=== PATIENT | male | born 1960 | race Caucasian/White ===

== ENCOUNTER → 2017-12-17 17:00 | Outpatient (CLI) | payer OTHER, MEDICAID, SELFPAY ==
--- NOTE | 2017-12-17 | DI.MRI.S_ITS ---
PROCEDURE: MR KNEE RT WO CON INDICATIONS: Medial right knee pain TECHNIQUE: Noncontrast sagittal PD fast spin echo and T2 fast spin echo with fat saturation, sagittal 3-D FLASH with fat saturation; coronal T1 spin echo and PD fast spin echo with fat saturation, and axial PD fast spin echo with fat saturation through the knee. COMPARISON: None. FINDINGS: Image quality: Excellent. Menisci: There is horizontal tear involving the posterior horn of the medial meniscus extending to the inferior articular surface. The lateral meniscus demonstrates normal morphology and internal signal. The meniscal root ligaments appear intact. Cruciate ligaments: The anterior and posterior cruciate ligaments appear intact. Medial structures: The medial collateral ligament appears intact. The posterior oblique ligament, semimembranosus tendon insertions, oblique popliteal ligament, and meniscocapsular junction appear intact. Visualized portions of the pes anserinus tendons appear normal. No abnormal bursal fluid. Lateral structures: The lateral collateral ligament, long and short heads of the biceps femoris tendon appear intact. The popliteus tendon appears normal; the popliteofibular ligament appears intact. The posterosuperior and anteroinferior popliteomeniscal fascicles appear intact. The arcuate and fabellofibular ligaments appear intact, on either side of the lateral inferior geniculate artery. Iliotibial band appears normal. Anterior structures: The quadriceps and patellar tendons appear intact. Patellar alignment is normal. No femoral trochlear dysplasia or ventral trochlear prominence. No edema in the infrapatellar fat pad. Bones and cartilage: No bone marrow contusions or fractures. There is cartilage thinning and fibrillation of the patellofemoral compartment. A full-thickness cartilage fissure is noted in patella. Joint space: There is trace knee joint effusion. No Naranjo's cyst. Please made of mild thickening of synovial plicae. IMPRESSION: 1. Horizontal tear involving the posterior horn of the medial meniscus. 2. Chondromalacia patella. 3. Mild thickening of synovial plicae. Dictated by: Taye Arthur M.D. on 12/17/2017 at 22:25 Approved by: Taye Arthur M.D. on 12/18/2017 at 10:04
--- NOTE | 2017-12-17 | DI.MRI.S_ITS ---
PROCEDURE: MR KNEE LT WO CON INDICATIONS: bilateral knee derangment TECHNIQUE: Noncontrast sagittal PD fast spin echo and T2 fast spin echo with fat saturation, sagittal 3-D FLASH with fat saturation; coronal T1 spin echo and PD fast spin echo with fat saturation, and axial PD fast spin echo with fat saturation through the knee. COMPARISON: None. FINDINGS: Image quality: Excellent. Menisci: There is a large horizontal tear involving the posterior horn of the medial meniscus. The lateral meniscus demonstrates normal morphology and internal signal. The meniscal root ligaments appear intact. Cruciate ligaments: There is mucoid degeneration of the anterior cruciate ligament. The posterior cruciate appear normal. Medial structures: The medial collateral ligament appears intact. The posterior oblique ligament, semimembranosus tendon insertions, oblique popliteal ligament, and meniscocapsular junction appear intact. Visualized portions of the pes anserinus tendons appear normal. No abnormal bursal fluid. Lateral structures: The lateral collateral ligament, long and short heads of the biceps femoris tendon appear intact. The popliteus tendon appears normal; the popliteofibular ligament appears intact. The posterosuperior and anteroinferior popliteomeniscal fascicles appear intact. The arcuate and fabellofibular ligaments appear intact, on either side of the lateral inferior geniculate artery. Iliotibial band appears normal. Anterior structures: The quadriceps and patellar tendons appear intact. Patellar alignment is normal. No femoral trochlear dysplasia or ventral trochlear prominence. No edema in the infrapatellar fat pad. Bones and cartilage: No fractures. There is marrow edema in the fibular head. There is mild tricompartmental cartilage thinning and fibrillation. Joint space: There is moderate knee joint effusion. No Naranjo's cyst. Normal appearing synovial plicae are incidentally noted. A 5 mm intra-articular body is noted within the intercondylar notch. IMPRESSION: 1. Large horizontal tear involving the posterior horn of the medial meniscus. 2. Mucoid degeneration of the anterior cruciate ligament. 3. Mild tricompartmental cartilage thinning and fibrillation. 4. Moderate knee joint effusion. 5. Marrow edema in the fibular head, either reactive (related to proximal tibiofibular joint degeneration) or secondary to mild contusion. 6. A 5 mm intra-articular body within the intercondylar notch Dictated by: Taye Arthur M.D. on 12/17/2017 at 22:28 Transcribed by: MERLY on 12/17/2017 at 22:30 Approved by: Taye Arthur M.D. on 12/18/2017 at 10:11
== END ==
PROVIDERS: Visit Provider Orthopaedic Surgery
DX: S83.242A Other tear of medial meniscus, current injury, left knee, initial encounter (principal); M17.12 Unilateral primary osteoarthritis, left knee; M25.462 Effusion, left knee; S83.241A Other tear of medial meniscus, current injury, right knee, initial encounter; M22.41 Chondromalacia patellae, right knee
CPT/HCPCS: 73721

== ENCOUNTER → 2024-06-08 13:57 | Outpatient (CLI) | payer OTHER, MEDICAID, SELFPAY ==
--- NOTE | 2024-06-08 13:59 | DI.RAD.S_ITS ---
PROCEDURE: XR SHOULDER RT MIN 2V INDICATIONS: R shoulder pain TECHNIQUE: Three views of the shoulder were acquired. COMPARISON: None. FINDINGS: Bones: There are no osseous abnormalities. Acromioclavicular and glenohumeral joints: Mild degeneration both joints. Soft tissues: No soft tissue swelling, calcification or mass. IMPRESSION: Mild acromioclavicular and glenohumeral degeneration. Dictated by: Cj Gunter M.D. on 06/09/2024 at 11:45 Approved by: Cj Gunter M.D. on 06/09/2024 at 11:46
== END ==
PROVIDERS: PCP Family Medicine; Referring Provider Family Medicine; Visit Provider Family Medicine
DX: M19.011 Primary osteoarthritis, right shoulder (principal); M25.511 Pain in right shoulder
CPT/HCPCS: 73030

== ENCOUNTER → 2024-09-25 08:34 | Outpatient (CLI) | payer OTHER, SELFPAY ==
--- NOTE | 2024-09-25 08:35 | DI.RAD.S_ITS ---
PROCEDURE: XR LUMBAR SPINE 2-3V INDICATIONS: chronic back pain TECHNIQUE: Three views of the lumbar spine were acquired. COMPARISON: None. FINDINGS: Bones: Five [id number]-[id number] vertebrae are present. There is grade 1 retrolisthesis at every level from L1 through S1. Mild disc height loss at all levels. Prominent facet hypertrophy and sclerosis throughout the lumbar spine. No vertebral body compression fractures. No suspicious bony lesions. Soft tissues: Overlying bowel gas pattern is normal. No suspicious soft tissue calcifications. IMPRESSION: Multilevel spondylosis and spondylolisthesis. Dictated by: Melissa Odell M.D. on 09/25/2024 at 13:56 Approved by: Melissa Odell M.D. on 09/25/2024 at 13:57
--- NOTE | 2024-09-25 08:35 | DI.RAD.S_ITS ---
PROCEDURE: XR CERVICAL SPINE 2V OR 3V INDICATIONS: C spine pain TECHNIQUE: Three view(s) of the cervical spine were acquired. COMPARISON: None. FINDINGS: Bones: Normal mineralization. No acute vertebral body fractures. Degeneration at the C1-2 level anteriorly. Normal alignment. Mild facet sclerosis at C7-T1. Mildly decreased disc height at C4-5, C5-6, and C6-7. Odontoid view is normal. Soft tissues: No prevertebral soft tissue swelling. IMPRESSION: Mild, predominantly lower cervical spine disc degeneration. Dictated by: Melissa Odell M.D. on 09/25/2024 at 13:55 Approved by: Melissa Odell M.D. on 09/25/2024 at 13:56
== END ==
PROVIDERS: PCP Family Medicine; Referring Provider Family Medicine; Visit Provider Family Medicine
DX: M50.31 Other cervical disc degeneration, high cervical region; M54.50 Low back pain, unspecified; M43.16 Spondylolisthesis, lumbar region; M43.17 Spondylolisthesis, lumbosacral region; M47.816 Spondylosis without myelopathy or radiculopathy, lumbar region; G89.29 Other chronic pain
CPT/HCPCS: 72040; 72100

== ENCOUNTER 2024-11-21 13:10 | Emergency (ER) | payer MEDICARE, SELFPAY ==
--- NOTE | 2024-11-21 13:14 | DI.RAD.S_ITS ---
PROCEDURE: XR CHEST 1V INDICATIONS: chest pain TECHNIQUE: One view of the chest was acquired. COMPARISON: None. FINDINGS: Surgical changes and devices: None. Lungs and pleura: Lungs are clear. No pleural effusions or pneumothorax. Mediastinum: Mediastinal contours appear normal. Heart size is normal. Bones and chest wall: No suspicious bony lesions. Overlying soft tissues appear unremarkable. IMPRESSION: No acute cardiopulmonary abnormality is seen. Approved by: Holger Wade M.D. on 11/21/2024 at 14:13
[2024-11-21 13:18] VITALS: BP 159/100; PULSE 77; RESP 17; TEMP 36.7; O2SAT 100; BMI 20.4
--- NOTE | 2024-11-21 13:21 | EKG_ITS ---
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
--- NOTE | 2024-11-21 13:23 | EKG_ITS ---
[facility] [address] [place] [address] Test Date: 2024-11-21 Pat Name: Nick Mason Department: 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
[2024-11-21 13:30] VITALS: BP 173/88; PULSE 75
[2024-11-21] MEDS: ASPIRIN 81 MG CHEW TAB 243 MG PO (13:30)
[2024-11-21] MEDS: NITROGLYCERIN 0.4 MG SL TAB SL (13:30)
[2024-11-21 13:31] LABS: Add Manual Diff / Slide Review NO; Basophils Absolute Auto 0 /uL (0-100); Basophils Percent Auto 0.3 % (0-2); Eosinophils Absolute Auto 0 /uL (0-450); Eosinophils Percent Auto 0.4 % (2-4); Hematocrit 44.5 % (41-53); Hemoglobin 15.1 g/dL (13.5-17.5); Lymphocytes Absolute Auto 1200 /uL (1100-4500); Lymphocytes Percent Auto 14.1 % (25-40); Mean Corpuscular HGB Conc 33.8 % (30-36); Mean Corpuscular Volume 94.5 fL (80-100); Monocytes Absolute Auto 600 /uL (0-900); Monocytes Percent Auto 7.4 % (3-14); Neutrophils Absolute Auto 6700 /uL (1500-7000); Neutrophils Percent Auto 77.8 % (50-75); Platelet Count 193 X10^3/uL (150-400); Red Cell Distribution Width 13.5 % (11.6-14.8); White Blood Cell Count 8.6 X10^3/uL (4.5-11.0)
[2024-11-21] MEDS: HEPARIN 5,000 UNIT/ML VIAL 4000 UNIT IV (13:35)
[2024-11-21 13:36] LABS: INR 1.1 (0.9-1.3); Prothrombin Time 12.3 SECONDS (9.4-12.5)
[2024-11-21] MEDS: HEPARIN DRIP 25,000 UNIT/500 ML IV.SOLN 16.874 UNIT IV (13:36)
--- NOTE | 2024-11-21 13:36 | ED_ITS ---
HPI - Chest Pain General Chief Complaint: Chest Pain Stated Complaint: Chest pain few hours ago Time Seen by Provider: 11/21/24 13:30 Source: patient Mode of arrival: Ambulatory History of Present Illness HPI narrative: Patient is a 64-year-old male history of hypertension and known LAD lesion without a stent presenting today with chest pain and pressure. He reports that he was doing heavy for 3 work lifting heavy things today when he noticed increasing pressure. It did not radiate no significant shortness of breath. He was previously seen at [facility] who reported that he had about a 50% lesion in his LAD at that time he chose not to have a stent placed. He has not really had issues since. However today he was significant pressure it kind of comes and goes definitely worse with exertion[place] come [place] here without any issue. He was currently still having chest pressure. He took a full-dose aspirin prior to arrival. Related Data Previous Rx's Medication Instructions Recorded amlodipine 2.5 mg tablet 2.5 mg PO DAILY #90 tabs 09/15/24 bupropion HCl 150 mg 24 hr tablet, 150 mg PO QAM #90 tabs 09/15/24 extended release lisinopril 20 mg tablet 20 mg PO DAILY #90 tabs 09/15/24 cyclobenzaprine 10 mg tablet 10 mg PO BEDTIME PRN muscle spasm 09/30/24 #30 tabs hydrocodone 5 mg-acetaminophen 325 1 tab PO BEDTIME PRN pain #20 tabs 09/30/24 mg tablet methylprednisolone 4 mg tablets in See Rx Instructions PO PER PKG DIR 09/30/24 a dose pack (Medrol (Arnaud)) #21 ea Allergies Allergy/AdvReac Type Severity Reaction Status Date / Time No Known Drug Allergies Allergy Verified 11/21/24 13:25 Patient History Medical History Chronic low back pain Preventative health care Depression Hypertension CAD (coronary artery disease) Right shoulder pain Social History Smoking Status: Never smoker Smoking Status: Never smoker Exam Initial Vital Signs Initial Vital Signs: Vital Signs Temperature 98.1 F 11/21/24 13:18 Pulse Rate 77 11/21/24 13:18 Respiratory Rate 17 11/21/24 13:18 Blood Pressure 159/100 H 11/21/24 13:18 Pulse Oximetry 100 11/21/24 13:18 Oxygen Delivery Method Room Air 11/21/24 13:18 GENERAL: Alert well-appearing 64-year-old and in no acute distress. HEENT: Head atraumatic,EOMI, pupils reactive, face symmetric, moist mucous membranes CARDIOVASCULAR: Regular rate and rhythm without murmurs, rubs or gallops. RESPIRATORY: Breath sounds equal bilaterally, no wheezes rales or rhonchi. ABDOMEN: Soft, nontender. Normoactive bowel sounds all 4 quadrants. No guarding or rebound. EXTREMITIES: Normal range of motion, no clubbing or edema. Neurovascularly intact NEUROLOGICAL: Alert and oriented x4.Normal gait and speech. Cranial nerves II through XII grossly intact. SKIN: Warm, dry, no laceration, no petechiae, no rashes or lesions. Course Orders Ordered: ED Orders 11/21/24 13:14 XR chest 1V Stat EKG-12 Lead Stat 11/21/24 13:22 Complete Blood Count AUTO DIFF Stat Comprehensive Metabolic Panel Stat Lipase Stat Magnesium Stat NT-proBNP (BNP-Adult 18+) Stat PTT Partial Thromboplastin Bryan Stat Prothrombin Time INR Stat Troponin & CK Cardiac Panel Stat Discontinued Medications Aspirin (Aspirin 81 Mg Chew Tab) 243 mg PO NOW ONE Stop: 11/21/24 13:15 Last Admin: 11/21/24 13:30 Dose: 243 mg Documented By: ZAIDA Heparin Sodium (Porcine) (Heparin 5,000 Unit/Ml Vial) 4,000 unit 60 unit/kg (4000 unit) IV NOW ONE Stop: 11/21/24 13:31 Last Admin: 11/21/24 13:35 Dose: 4,000 unit Documented By: ZAIDA Heparin Sodium/Dextrose (Heparin Drip) 25,000 unit in 500 mls @ 16.874 mls/hr IV CONT ADALBERTO; Protocol Last Titration: 11/21/24 14:11 Dose: Infused Documented By: ZAIDA Co-signed By: THIEN Titration: 11/21/24 14:09 Dose: 12 units/kg/hr, 16.874 mls/hr Documented By: ZAIDA Co-signed By: THIEN Admin: 11/21/24 13:36 Dose: 12 units/kg/hr, 16.874 mls/hr Documented By: ZAIDA Co-signed By: TARA Nitroglycerin (Nitroglycerin 0.4 Mg Sl Tab) 0.4 mg SL [id number] PRN PRN Reason: Chest Pain Last Admin: 11/21/24 13:30 Dose: 0.4 mg Documented By: ZAIDA Vital Signs Vital signs: Vital Signs - 8 hr 11/21/24 13:18 11/21/24 13:30 11/21/24 13:46 Temperature 98.1 F Pulse Rate 77 75 71 Respiratory Rate 17 21 Blood Pressure 159/100 H 173/88 H Pulse Oximetry 100 98 Oxygen Delivery Method Room Air 11/21/24 13:47 11/21/24 13:47 11/21/24 13:50 Temperature Pulse Rate 70 Respiratory Rate 18 Blood Pressure 153/79 H 176/78 H Pulse Oximetry 98 Oxygen Delivery Method 11/21/24 13:50 Temperature Pulse Rate 67 Respiratory Rate 18 Blood Pressure Pulse Oximetry 99 Oxygen Delivery Method MDM - Chest Pain Lab Data 11/21/24 13:22 11/21/24 13:22 Labs: Lab Results 11/21/24 Range/Units 13:22 WBC 8.6 (4.5-11.0) X10^3/uL RBC 4.70 (4.5-5.9) X10^6/uL Hgb 15.1 (13.5-17.5) g/dL Hct 44.5 (41-53) % MCV 94.5 (80-100) fL MCH 32.0 (26-34) PG MCHC 33.8 (30-36) % RDW 13.5 (11.6-14.8) % Plt Count 193 (150-400) X10^3/uL Neut % (Auto) 77.8 H (50-75) % Lymph % (Auto) 14.1 L (25-40) % [place] % (Auto) 7.4 (3-14) % Eos % (Auto) 0.4 L (2-4) % Baso % (Auto) 0.3 (0-2) % Neut # (Auto) 6700 (3069-6309) /uL Lymph # (Auto) 1200 (3565-6479) /uL [place] # (Auto) 600 (0-900) /uL Eos # (Auto) 0 (0-450) /uL Baso # (Auto) 0 (0-100) /uL PT 12.3 (9.4-12.5) SECONDS INR 1.1 (0.9-1.3) APTT 33 (25.1-36.5) SECONDS Sodium 141 (137-145) mmol/L Potassium 4.3 (3.4-5.1) mmol/L Chloride 107 (98-107) mmol/L Carbon Dioxide 25 (22-32) mmol/L BUN 24 H (9-20) mg/dL Creatinine 1.06 (0.66-1.25) mg/dL Estimated GFR > 60 (>60) mL/min BUN/Creatinine Ratio 22.6 H (6-22) Glucose 86 (70-99) mg/dL Calcium 10.4 H (8.4-10.2) mg/dL Magnesium 1.8 (1.6-2.3) mg/dL Total Bilirubin 0.6 (0.2-1.3) mg/dL AST 40 (17-59) IU/L ALT 27 (<50) IU/L Alkaline Phosphatase 66 (38-126) U/L Total Creatine Kinase 112 (55-170) U/L Troponin I 0.012 (0.01-0.034) ng/mL NT-Pro-B Natriuret Pep 95 (<125) pg/mL Total Protein 7.3 (6.3-8.2) g/dL Albumin 4.6 (3.5-5.0) g/dL Globulin 2.7 (1.7-4.1) g/dL Albumin/Globulin Ratio 1.7 (1.0-2.8) Lipase 182 (23-300) U/L Imaging Data Chest x-ray: Radiologist's Impression: PROCEDURE: XR CHEST 1V INDICATIONS: chest pain TECHNIQUE: One view of the chest was acquired. COMPARISON: None. FINDINGS: Surgical changes and devices: None. Lungs and pleura: Lungs are clear. No pleural effusions or pneumothorax. Mediastinum: Mediastinal contours appear normal. Heart size is normal. Bones and chest wall: No suspicious bony lesions. Overlying soft tissues appear unremarkable. IMPRESSION: No acute cardiopulmonary abnormality is seen. Approved by: Holger Wade M.D. on 11/21/2024 at 14:13 ECG Data Attestation: I personally reviewed and interpreted this ECG as follows: Prior ECG tracings: not available for review Interpretation: Sinus rhythm rate 63 [place] interval [address] elevation in V3 also questionable peaked T-waves V4 V5 and V6 no reciprocal ST depression appreciated no priors to compare EKGs 2. ST elevation V3 persistent pink T-wave waves no obvious ST depression MDM Narrative Medical decision making narrative: Patient is 64-year-old male with known LAD lesion without a stent presenting today with chest pressure with exertion. He is still having chest pressure at rest but surprisingly appears well. Non diaphoretic. EKGs is concerning for STEMI with ST elevation only in V 3 does appear to have some peaked T-waves V4 V5 and V6. Do not appreciate any reciprocal ST depression. He was no prior EKGs in our system to compare to. Patient was given nitro and started on a heparin drip 1330 Dr. Estrada updated on patient's symptoms test results and accepts patient over to [facility] Troponin and BNP still pending No leukocytosis no anemia creatinine 1.0 Chest xray no acute process. Discharge Plan Departure Patient Disposition: [facility] Clinical Impression: ST elevation (STEMI) myocardial infarction Prescriptions: No Action lisinopril 20 mg tablet 20 mg PO DAILY Qty: 90 3RF bupropion HCl 150 mg tablet extended release 24 hr 150 mg PO QAM Qty: 90 3RF amlodipine 2.5 mg tablet 2.5 mg PO DAILY Qty: 90 3RF hydrocodone-acetaminophen 5-325 mg tablet 1 tab PO BEDTIME PRN (Reason: pain) Qty: 20 0RF methylprednisolone [Medrol (Arnaud)] 4 mg tablets,dose pack See Rx Instructions PO PER PKG DIR Qty: 21 0RF Rx Instructions: PO PER PKG DIR for 6 days cyclobenzaprine 10 mg tablet 10 mg PO BEDTIME PRN (Reason: muscle spasm) Qty: 30 1RF Referrals: [facility], [Primary Care Provider] -
[2024-11-21 13:39] LABS: PTT Partial Thromboplastin Tim 33 SECONDS (25.1-36.5)
[2024-11-21 13:41] LABS: Alanine Aminotransferase 27 IU/L (<50); Albumin 4.6 g/dL (3.5-5.0); Albumin Globulin Ratio 1.7 (1.0-2.8); Alkaline Phosphatase 66 U/L (38-126); Aspartate Aminotransferase 40 IU/L (17-59); BUN Creatinine Ratio 22.6 (6-22); Bilirubin Total 0.6 mg/dL (0.2-1.3); Blood Urea Nitrogen 24 mg/dL (9-20); Calcium 10.4 mg/dL (8.4-10.2); Carbon Dioxide 25 mmol/L (22-32); Chloride 107 mmol/L (98-107); Creatine Kinase 112 U/L (55-170); Estimated Glomerular Filt Rate > 60 mL/min (>60); Globulin 2.7 g/dL (1.7-4.1); Glucose 86 mg/dL (70-99); HEMOLYSIS < 15 (0-50); Lipase 182 U/L (23-300); Magnesium 1.8 mg/dL (1.6-2.3); Potassium 4.3 mmol/L (3.4-5.1); Sodium 141 mmol/L (137-145); Total Protein 7.3 g/dL (6.3-8.2)
[2024-11-21 13:46] VITALS: PULSE 71; RESP 21; O2SAT 98
[2024-11-21 13:47] VITALS: BP 153/79; PULSE 70; RESP 18; O2SAT 98
[2024-11-21 13:50] VITALS: BP 176/78; PULSE 67; RESP 18; O2SAT 99
[2024-11-21 13:52] LABS: NT-proBNP (BNP-Adult 18+) 95 pg/mL (<125); Troponin I 0.012 ng/mL (0.01-0.034)
--- NOTE | 2024-11-21 14:06 | PC.NURSE ---
1330 Nitro given, pt reporting left chest pain/pressure 2/10, no radiation currently. Had episode of left chest pain with radiation up left chest to neck this morning while at rest. 1335 Pt reports chest pain/pressure has resolved. Informed pt to use call light if pain/pressure returns. Pt verbalized understanding. Heparin drip started. 1355 Transport arrives to take pt to [facility]. Pt reports he remains pain free. This RN called pt partner Patt to update her on pt status/transfer.
== END 2024-11-21 13:55 | disposition short-term general hospital (02) ==
PROVIDERS: Emergency Provider Emergency Medicine; PCP Family Medicine
DX: I21.3 ST elevation (STEMI) myocardial infarction of unspecified site (principal)
CPT/HCPCS: 36415; 71045; 80053; 82550; 83690; 83735; 83880; 84484; 85025; 85610; 85730; 93005; 93010; 96365; 96375; 99284; 99285; 99291; J1644

== ENCOUNTER → 2025-03-10 08:19 | Outpatient (CLI) | payer MEDICARE, SELFPAY ==
[2025-03-10 09:30] LABS: Alanine Aminotransferase 54 IU/L (<50); Albumin 4.3 g/dL (3.5-5.0); Albumin Globulin Ratio 1.7 (1.0-2.8); Alkaline Phosphatase 59 U/L (38-126); Blood Urea Nitrogen 16 mg/dL (9-20); Calcium 10.4 mg/dL (8.4-10.2); Carbon Dioxide 28 mmol/L (22-32); Chloride 103 mmol/L (98-107); Cholesterol 157 mg/dL (140-199); Estimated Glomerular Filt Rate > 60 mL/min (>60); Globulin 2.5 g/dL (1.7-4.1); Glucose 96 mg/dL (70-99); HDL Cholesterol 66 mg/dL (40-60); HEMOLYSIS < 15 (0-50); Potassium 4.7 mmol/L (3.4-5.1); Sodium 137 mmol/L (137-145); Total Protein 6.8 g/dL (6.3-8.2); Triglycerides 64 mg/dL (35-150)
[2025-03-10 10:33] LABS: TSH w/ Reflex to FT4 2.86 uIU/mL (0.47-4.68)
== END ==
PROVIDERS: PCP Family Medicine; Referring Provider Family Medicine; Visit Provider Family Medicine
DX: I10 Essential (primary) hypertension (principal); Z12.5 Encounter for screening for malignant neoplasm of prostate; I25.10 Atherosclerotic heart disease of native coronary artery without angina pectoris; E78.5 Hyperlipidemia, unspecified
CPT/HCPCS: 36415; 80053; 80061; 84443; G0103